=== PATIENT | female | born 1935 | race Caucasian/White ===

== ENCOUNTER 2022-12-31 10:55 | Emergency (ER) | payer OTHER ==
[~2022-12-31] VITALS: Ht 167.6 cm; Wt 87.0 kg
[2022-12-31 11:54] LABS: INR 0.97 (0.9-1.15); Partial Thromboplastin Time 27.2 sec (24.6-33.4)
[2022-12-31 12:03] LABS: Lymphocytes # (auto) 1.5 10 ^3/uL (0.4-5.4); Red Cell Distribution Width 16.1 % (11.8-14.3)
[2022-12-31 12:05] LABS: Basophils # (auto) 0.1 10 ^3/uL (0-0.2); Basophils % (auto) 0.5 % (0.0-2.0); Eosinophils # (auto) 0.2 10 ^3/uL (0-0.8); Eosinophils % (auto) 1.7 % (0.0-7.0); Hematocrit 31.6 % (36.0-46.0); Hemoglobin 9.7 g/dL (12.2-16.2); Lymphocytes % (auto) 12.3 % (10.0-50.0); Mean Corpuscular Hemoglobin 24.3 pg (28.0-32.0); Mean Corpuscular Hgb Conc. 30.6 g/dL (32.0-36.0); Mean Corpuscular Volume 79.6 fL (80.0-100.0); Monocytes % (auto) 8.4 % (0.0-12.0); Neutrophils # (auto) 9.2 10 ^3/uL (1.6-8.6); Neutrophils % (auto) 77.1 % (37.0-80.0); Red Blood Cells 3.98 10^6/uL (4.0-5.20)
[2022-12-31 12:07] LABS: Calcium 8.5 mg/dL (8.5-10.1)
[2022-12-31 12:11] LABS: Albumin 3.3 g/dL (3.4-5.0); BUN/Creatinine Ratio 28.9; Bilirubin, Total 0.3 mg/dL (0.2-1.0)
[2022-12-31] MEDS ORDERED: HYDROcodone-ACET 10/325MG TAB PO ONE (17:00)
[2022-12-31] MEDS ORDERED: SODIUM CHLORIDE 0.9% 1,000 ML IV ONE (18:00)
[2022-12-31 18:55] LABS: Urine Bacteria NONE SEEN /hpf (None Seen); Urine Blood Negative /uL (Negative); Urine Mucus FEW (None Seen); Urine Specific Gravity 1.024 (1.001-1.035); Urine WBC 2 /hpf (0 - 5)
[2022-12-31 21:00] VITALS: BP 143/61
[2022-12-31 23:19] LABS: Potassium 3.8 mmol/L (3.5-5.1)
== END 2022-12-31 21:37 | disposition short-term general hospital (02) ==
LOC: EDBD 10:55 → ER 10:55
DX: E87.0 Hyperosmolality and hypernatremia (principal); G93.41 Metabolic encephalopathy; I10 Essential (primary) hypertension; K21.9 Gastro-esophageal reflux disease without esophagitis; E78.5 Hyperlipidemia, unspecified; Z20.822 Contact with and (suspected) exposure to COVID-19
CPT/HCPCS: 36415; 70450; 71045; 80053; 81001; 84484; 85025; 85379; 85610; 85730; 87426; 93005; 96360; 96361; 99285; J7030